=== PATIENT | female | born 1970 | race Caucasian/White ===

== ENCOUNTER → 2020-01-22 | Outpatient (CLI) | payer BC ==
[2020-01-22 14:59] LABS: ALT 12 U/L (4-34); AST 21 U/L (14-36); African American GFR (CKD) >90 (>60 ml/min/1.73 sqM); Albumin 4.2 g/dL (3.5-5.0); Alkaline Phosphatase 95 U/L (38-126); Anion Gap 8 mmol/L; Blood Urea Nitrogen 10 mg/dL (7-17); Calcium 9.5 mg/dL (8.4-10.2); Carbon Dioxide 25 mmol/L (22-30); Chloride 103 mmol/L (98-107); Glucose 89 mg/dL (74-99); Non-African American GFR(CKD) >90 (>60 ml/min/1.73 sqM); Potassium 4.6 mmol/L (3.5-5.1); Sodium 136 mmol/L (137-145); Total Bilirubin 0.7 mg/dL (0.2-1.3)
[2020-01-22 15:01] LABS: HCT 47.7 % (34.0-46.0); HGB 15.6 gm/dL (11.4-16.0); MCH 29.4 pg (25.0-35.0); MCHC 32.7 g/dL (31.0-37.0); MCV 89.9 fL (80.0-100.0); Mean Platelet Volume 7.2; Platelet Count 283 k/uL (150-450); RDW 13.5 % (11.5-15.5); WBC 7.1 k/uL (3.8-10.6)
[2020-01-22 15:22] LABS: Appearance,Urine Clear (Clear); Bilirubin,Urine Negative (Negative); Blood,Urine Negative (Negative); Color,Urine Yellow; Glucose,Urine (UA) Negative (Negative); Ketones,Urine Negative (Negative); Leukocyte Esterase,Urine Negative (Negative); Nitrite,Urine Negative (Negative); PH, Urine 5.5 (5.0-8.0); Protein,Urine Negative (Negative); Specific Gravity,Urine 1.013 (1.001-1.035); Urobilinogen,Urine <2.0 mg/dL (<2.0)
[2020-01-22 22:03] LABS: Partial Thromboplastin Time 26.5 sec (22.0-30.0)
== END | disposition home or self-care (01) ==
LOC: LABPAT 12:33
PROVIDERS: ATTEND Orthopaedic Surgery
DX: Z01.818 Encounter for other preprocedural examination (principal); Z01.812 Encounter for preprocedural laboratory examination
CPT/HCPCS: 80053; 81003; 85027; 85610; 85730; 87070

== ENCOUNTER 2020-02-02 13:18 | Observation (INO) | payer BC ==
[2020-01-29 11:36] VITALS: BMI 43.8
[~2020-02-02 13:18] MED LIST: ACETAMINOPHEN TAB 500 MG TAB PO ONE; DEXAMETHASONE SOD PHOSPHATE 10 MG/ML 1 ML VIAL IV ONE; GABAPENTIN 300 MG CAP PO ONE; HYDROcodone/APAP 5-325MG 1 EACH TAB PO PRN; HYDROmorphone 0.5 MG/0.5 ML SYRINGE IVP PRN; LIDOCAINE 1% (10MG/ML) FOR IV START INTRADERMA PRN; MAGNESIUM HYDROXIDE 2,400 MG/10 ML CUP PO PRN; MELOXICAM 7.5 MG TAB PO ONE; NA PHOS,M-B/NA PHOS,DI-BA 133 ML ENEMA RECTAL PRN; NALOXONE 0.4 MG/ML 1 ML VIAL IV PRN; ONDANSETRON 4 MG/2 ML VIAL IVP ONE; ONDANSETRON 4 MG/2 ML VIAL IVP PRN; ROPIVACAINE 246.25 MG, EPINEPHrine 0.5 MG, KETOROLAC 30 MG, cloNIDine HCL/PF 80 MCG, WA... MISCELLANE ONE; SCOPOLAMINE 1.5MG/72HR PATCH TRANSDERM ONE; TRANEXAMIC ACID 1,000 MG in SODIUM CHLORIDE 0.9% 100 ML IVPB ONE; bisacodyL 10 MG SUPP RECTAL PRN; ceFAZolin 3 GM in SODIUM CHLORIDE 0.9% 100 ML IVPB ONE; diazePAM 5 MG TAB PO PRN; hydrOXYzine pamoate 25 MG CAP PO PRN
[2020-02-02] MEDS: LACTATED RINGERS 1,000 ML IV SCH (14:04)
[2020-02-02] MEDS ORDERED: ONDANSETRON 4 MG/2 ML VIAL ONE (14:07)
[2020-02-02] MEDS ORDERED: ACETAMINOPHEN TAB 500 MG TAB ONE (14:07)
[2020-02-02] MEDS ORDERED: MIDAZOLAM 2 MG/2 ML VIAL IV ONE (14:17)
[2020-02-02] MEDS ORDERED: fentaNYL (PF) 50 MCG/ML 2 ML AMP IV ONE (14:17)
[2020-02-02] MEDS ORDERED: SCOPOLAMINE 1.5MG/72HR PATCH TRANSDERM ONE (14:40)
[2020-02-02] MEDS ORDERED: TRANEXAMIC ACID 1,000 MG/10 ML VIAL ONE (14:48)
[2020-02-02] MEDS ORDERED: KETAMINE 10 MG/ML 20 ML VIAL ONE (14:48)
[2020-02-02] MEDS ORDERED: PROPOFOL 10 MG/ML 20 ML VIAL IV ONE (14:48)
[2020-02-02] MEDS ORDERED: ROCURONIUM BROMIDE 10 MG/ML 5 ML VIAL IV ONE (14:48)
[2020-02-02] MEDS ORDERED: SUCCINYLCHOLINE CHLORIDE 100 MG/5 ML SYR IV ONE (14:48)
[2020-02-02] MEDS ORDERED: MIDAZOLAM 2 MG/2 ML VIAL ONE (14:48)
[2020-02-02] MEDS ORDERED: LIDOCAINE 1% INJ 10MG/ML (20 ML MDV) ONE (14:48)
[2020-02-02] MEDS ORDERED: SODIUM CHLORIDE 0.9% 100 ML BAG ONE (14:48)
[2020-02-02] MEDS ORDERED: fentaNYL (PF) 50 MCG/ML 2 ML AMP ONE (14:48)
[2020-02-02] MEDS ORDERED: ROPIVACAINE 0.2%-NS ON-Q PUMP 1,090 MG, EMPTY PAIN BALL 1 EACH MISCELLANE PRN (16:03)
--- NOTE | 2020-02-02 16:03 | P.ANPRN ---
Procedure Note - Anesthesia - Nerve Block Performed Right Adductor Canal Infusion Time Out Performed: Yes Date of Procedure: 02/02/20 Procedure Start Time: 14:16 Procedure Stop Time: 14:25 Location of Patient: PreOp Indication: Requested by Surgeon Specifically requested for management of pain by DrMandi: Abraham Monet Sedation Type: Sedate with meaningful contact maintained Preparation: Sterile Prep, Sterile Dressing Position: Supine Catheter: Indwelling Needle Types: Pajunk Needle Gauge: 18 Ultrasound used to visualize needle placement: Yes Ultrasound used to observe medication spread: Yes Injectate: 0.5% Ropivacaine (see comment for volume) (20 ml) Blood Aspirated: No Pain Paresthesia on Injection Noted: No Resistance on Injection: Normal Image Stored and Saved: Yes Events: Uneventful and Well Tolerated
--- NOTE | 2020-02-02 16:19 | P.OP ---
Date of Procedure: 02/02/20 Preoperative Diagnosis: Severe osteoarthritis right knee Postoperative Diagnosis: Severe osteoarthritis right knee Procedure(s) Performed: Right total knee arthroplasty utilizing Vision[employer] patient specific guides Implants: Flores and Nephew Cruciate Retaining Journey II CR Oxinium Femoral Component size 5, right Flores & Nephew Journey Nonporous Tibial Baseplate size 4, right Flores & Nephew Journey II Deep Dished, XLPE Articular Insert, 10 mm, size 3-4 Flores & Nephew Abbie II Resurfacing Patellar Component, Oval, 29 mm All components were cemented using Palacose R bone cement. The articulation is Oxinium on polyethylene. Visionaire patient specific guides The articulation is Oxinium on polyethylene. Anesthesia: spinal Surgeon: Abraham Monet Slash Trimmer #1: Iona Fonseca Estimated Blood Loss (ml): 25 Pathology: other (Bone and cartilage) Condition: stable Disposition: PACU Indications for Procedure: After failure of conservative treatment we discussed the surgical and nonsurgical treatment options at length. Patient wishes to proceed with a total knee arthroplasty. Complications specific to this procedure were discussed at length, including but not limited to infection, bleeding, stiffness, and nerve injury. Covid-19 was also discussed at length with the patient, and they are aware of the current policies and procedures. The patient was given the option of delaying surgery, but they elect to proceed knowing these risks. Patient is aware of all these complications and informed consent was obtained Operative Findings: The operative findings are consistent with severe osteoarthritis of the right knee Description of Procedure: Patient was seen in the preoperative area consent was reviewed and operative site was marked with a skin marker. An adductor canal pain catheter was placed by anesthesia in the preoperative area. Patient was then brought to the operating room and given preoperative antibiotics intravenously. A spinal anesthetic was administered by the anesthesia department. A tourniquet was placed on the upper thigh and the lower extremity was prepped and draped in usual sterile fashion. A gram of transexamic acid was given. A universal timeout was then performed which confirmed the patient's name, surgical site, ALLERGIES, and consent. The lower extremity was then exsanguinated and tourniquet was inflated to 250 mmHg. A standard and anterior midline approach to the knee was performed. The skin and subcutaneous tissue was dissected down to the patellar tendon. A medial parapatellar arthrotomy was then performed. The knee was then extended, the patellar was everted, and the knee was again flexed. Anterior horns of both menisci were excised, and a release was performed to the posterior medial aspect of the knee. On gross visual inspection, there was complete loss of articular cartilage in the medial and patellofemoral joint spaces. There was also significant cartilage damage in the lateral compartment. There were multiple periarticular osteophytes. The patient specific guide was placed on the distal femur, and pinned in place. Using the patient specific guide, the distal femoral cut was performed. The cutting block was then removed and the cut was checked for flatness. The appropriate 5-in-1 cutting block was then pinned in place through the holes that were drilled through the patient specific guide. The anterior condyles were cut without notching. The posterior and chamfer cuts were performed while protecting the collateral ligaments. The cutting block was then removed. Attention was then directed to the tibia. The remaining ACL was removed with a Ronguer, and the tibia was then gently subluxed forward with a large bent knee retractor. Any remaining menisci was excised. The posterior lateral corner was cauterized in order to cauterize the lateral geniculate artery. The patient specific guide for the tibia was then placed and was held in place with pins. Pinholes were then placed for rotation of the tibial component as well. Proximal tibia was then cut and sized. Next trials were then placed with the appropriate-sized insert. The knee was able to fully extend and flex to 130 and was stable throughout all range of motion. The knee was then extended, patella everted. Patella was then measured, and then using an osteotomy guide, the patella was cut at the appropriate level. The patella was then measured and drilled and the patella trial was then placed. The knee was then taken through range of motion with the patella trial and the patella tracked normally. The knee was then extended patella trial was then removed and the patella was everted. Knee was then flexed and lug holes were drilled through the femoral trial and the femoral trial was then removed. The tibial was then exposed, and the tibial broach guide was then pinned in place after it was set for the appropriate rotation to allow for the most coverage without overhang. The tibia was then reamed and broached. The cut surfaces of bone were then irrigated with pulsatile lavage. The posterior structures were injected with the ropivacaine solution. The knee was also irrigated with Irrisept solution. The components were then opened, the cement was mixed, and the components were then cemented in place. The cement was allowed to harden with the knee in full extension. While the cement was hardening, the remaining soft tissues were then injected with a ropivacaine solution, which consisted of 246.25 mg of ropivacaine, 0.5 mg of epinephrine, 30 mg of Toradol, 80 g of clonidine, and 48.45 mL of sterile water, for a total of 100 mL of fluid injected. After the cemented hardened. The tourniquet was released, and hemostasis was obtained. A second gram of transexamic acid was given. The knee was again irrigated. The knee was again taken through range of motion and found to be stable throughout all range of motion of 0-130, and the patella tracked normally. The fascia was then closed with #2 strata fix suture. The subcutaneous tissue was closed with 3-0 Vicryl and 3-0 strata fix. Dermabond glue was used for the skin and placed with the knee in flexion. The patient was placed in a sterile silver dressing. Patient was then transferred to recovery room in stable condition. The assistant professor of psychology LG Cole was required due the complexity surgery and the need for a skilled surgical services assistant. She assisted in positioning, draping, retraction, and closure of the wound.
[2020-02-02] MEDS ORDERED: LACTATED RINGERS 1,000 ML IV ONE (16:36)
[2020-02-02] MEDS: HYDROmorphone 0.5 MG/0.5 ML SYRINGE IVP PRN ×4 (17:02→17:32)
--- NOTE | 2020-02-02 17:46 | XR ---
EXAMINATION TYPE: XR knee limited RT DATE OF EXAM: 02/02/2020 COMPARISON: NONE HISTORY: Postop TECHNIQUE: 2 views FINDINGS: There is right knee prosthesis. Components are in anatomic position. IMPRESSION: No complicating process seen.
[2020-02-02] MEDS: SODIUM CHLORIDE 0.9% 1,000 ML IV SCH ×2 (18:44→22:40)
[2020-02-02] MEDS: APIXABAN 5 MG TAB PO SCH (21:02)
[2020-02-02] MEDS: SENNOSIDES-DOCUSATE SODIUM 1 EACH TAB PO SCH (21:02)
[2020-02-02] MEDS: ceFAZolin 3 GM in SODIUM CHLORIDE 0.9% 100 ML IVPB SCH (22:40)
[2020-02-03] MEDS: LACTATED RINGERS 1,000 ML IV SCH (00:01)
[2020-02-03] MEDS: HYDROmorphone 1 MG/ML 1 ML SYRINGE IVP PRN ×3 (05:27→22:24)
--- NOTE | 2020-02-03 07:39 | P.PN ---
Progress Note - Text Progress Note Date: 02/03/20 Postoperative day # 1 status post total knee arthroplasty, under spinal anesthesia, and adductor canal catheter placed for postoperative analgesia, currently at ropivacaine 0.2% 8 mL per hour and continuous infusion, patient using oral pain medication for breakthrough pain. Assessment and plan= Acute postoperative pain, adductor canal catheter for pain control, pain is well controlled we'll continue the same management. note= patient was seen at 06:45 AM
[2020-02-03] MEDS: SODIUM CHLORIDE 0.9% 1,000 ML IV SCH (07:45)
[2020-02-03] MEDS: APIXABAN 5 MG TAB PO SCH ×2 (07:48→19:51)
[2020-02-03] MEDS: ceFAZolin 3 GM in SODIUM CHLORIDE 0.9% 100 ML IVPB SCH (07:48)
[2020-02-03 07:53] LABS: Basophils % (A) 0 %; Eosinophils # (A) 0.1 k/uL (0-0.7); Eosinophils % (A) 1 %; HCT 34.3 % (34.0-46.0); Lymphocytes # (A) 1.1 k/uL (1.0-4.8); Lymphocytes % (A) 9 %; MCH 31.5 pg (25.0-35.0); MCHC 35.2 g/dL (31.0-37.0); MCV 89.7 fL (80.0-100.0); Mean Platelet Volume 7.2; Monocytes # (A) 1.4 k/uL (0-1.0); Monocytes % (A) 11 %; Neutrophils # (A) 10.2 k/uL (1.3-7.7); Neutrophils % (A) 79 %; Platelet Count 252 k/uL (150-450); RBC 3.82 m/uL (3.80-5.40); RDW 13.6 % (11.5-15.5); WBC 12.8 k/uL (3.8-10.6)
[2020-02-03 07:59] LABS: HGB 12.1 gm/dL (11.4-16.0)
[2020-02-03] MEDS ORDERED: HYDROcodone/APAP 7.5-325MG 1 EACH TAB PO PRN (08:55)
[2020-02-03] MEDS ORDERED: MELATONIN 5 MG TABLET PO PRN (10:18)
--- NOTE | 2020-02-03 11:28 | P.PN ---
Subjective Progress Note Date: 02/03/20 This is a 49-year-old female who is status post right total knee arthroplasty. This is postoperative day #1 and patient is seen and evaluated at bedside with Dr. Abraham Monet. Patient does complain of pain in the right knee today and states that she has had difficulty ambulating due to stiffness in the knee. Patient denies any fever/chills, numbness, weakness, tingling, abdominal pain, shortness of breath or chest pain. Objective - Vital Signs Vital signs: Vital Signs Temp 98.2 F 02/03/20 07:00 Pulse 73 02/03/20 07:56 Resp 18 02/03/20 07:00 BP 107/74 02/03/20 07:56 Pulse Ox 96 02/03/20 07:00 Intake & Output 02/02/20 02/03/20 02/03/20 18:59 06:59 18:59 Intake Total 1450 Output Total 25 Balance 1425 Weight 130.2 kg 130.2 kg Intake: IV 1450 Output: Estimated Blood Loss 25 Other: Voiding Method Bedside Commode Bedside Commode # Voids 1 1 - Exam Vital signs are stable. Patient is in no acute distress and is alert and oriented 3. Calf is soft and nontender to palpation. Dressing is clean, dry, and intact. Patient has full foot and ankle motion without pain or difficulty. Neurovascular status and circulatory status are intact. - Labs CBC & Chem 7: 02/03/20 06:42 Labs: Abnormal Lab Results - Last 24 Hours (Table) 02/03/20 Range/Units 06:42 WBC 12.8 H (3.8-10.6) k/uL Neutrophils # 10.2 H (1.3-7.7) k/uL Monocytes # 1.4 H (0-1.0) k/uL Assessment and Plan (1) Osteoarthritis of right knee Current Visit: Yes Status: Acute Code(s): M17.11 - UNILATERAL PRIMARY OSTEOARTHRITIS, RIGHT KNEE SNOMED Code(s): 169669930001640 (2) Status post total right knee replacement Current Visit: Yes Status: Acute Code(s): Z96.651 - PRESENCE OF RIGHT ARTIFICIAL KNEE JOINT SNOMED Code(s): 4522656691019 Plan: #1 Continue with routine postoperative care and pain control, leave dressing in place for ten days. #2 Anticoagulation with Eliquis. #3 Physical therapy and CPM today. #4 Appreciate input from medicine. #5 Anticipate discharge home with home care likely tomorrow.
--- NOTE | 2020-02-03 12:33 | P.CONS ---
History of Present Illness - Reason for Consult Leukocytosis - History of Present Illness Patient is status post right total knee arthroplasty postoperative day 1. Patient is still having lots of pain because of which patient is not being discharged today patient did pass gas did not move his her bowel yet. Patient denied any fever chills nausea vomiting abdominal pain dysuria. Patient doesn't have a Ferguson catheter this time. Patient uses Lasix as well as hydrochlorothiazide for hypertension patient blood pressure is low normal which is expected in the perioperative period. Patient uses Eliquis 5 mg twice a day for history of DVT which she was resumed on already. Review of Systems REVIEW OF SYSTEMS: CONSTITUTIONAL: No fever, no malaise, no fatigue. HEENT: No recent visual problems or hearing problems. Denied any sore throat. CARDIOVASCULAR: No chest pain, orthopnea, PND, no palpitations, no syncope. PULMONARY: No shortness of breath, no cough, no hemoptysis. GASTROINTESTINAL: No diarrhea, no nausea, no vomiting, no abdominal pain. NEUROLOGICAL: No headaches, no weakness, no numbness. HEMATOLOGICAL: Denies any bleeding or petechiae. GENITOURINARY: Denies any burning micturition, frequency, or urgency. MUSCULOSKELETAL/RHEUMATOLOGICAL: Pain in the right knee ENDOCRINE: Denies any polyuria or polydipsia. The rest of the 14-point review of systems is negative. Past Medical History Past Medical History: Osteoarthritis (OA) Additional Past Medical History / Comment(s): edema right leg, superficial blood clot upper thigh x2-most recently in September, thinks has no fluid in lap band History of Any Multi-Drug Resistant Organisms: None Reported Past Surgical History: Bariatric Surgery, Orthopedic Surgery Additional Past Surgical History / Comment(s): lap band 5 yrs. ago, arthroscopic knee surg. x2 left knee, cyst removed left wrist Past Anesthesia/Blood Transfusion Reactions: No Reported Reaction Past Psychological History: Anxiety, Depression Smoking Status: Never smoker Past Alcohol Use History: Occasional Past Drug Use History: Marijuana Additional Drug Use History / Comment(s): occasional use - Past Family History Mother Family Medical History: No Reported History Medications and Allergies Home Medications Medication Instructions Recorded Confirmed Type Apixaban [Eliquis] 5 mg PO BID 01/29/20 02/02/20 History Celecoxib [CeleBREX] 400 mg PO DAILY 01/29/20 02/02/20 History Cetirizine HCl [Zyrtec] 10 mg PO DAILY 01/29/20 02/02/20 History DULoxetine HCL [Cymbalta] 60 mg PO DAILY 01/29/20 02/02/20 History Fluticasone Nasal [place] [Flonase 2 spr EA NOSTRIL DAILY 01/29/20 02/02/20 History Nasal [place]] Furosemide [Lasix] 20 mg PO DAILY 01/29/20 02/02/20 History Hemp Gummy 1 tab PO HS 01/29/20 02/02/20 History Melatonin 10 mg PO HS PRN 01/29/20 02/02/20 History Zolpidem [Ambien] 10 mg PO HS PRN 01/29/20 02/02/20 History Allergies Allergy/AdvReac Type Severity Reaction Status Date / Time No Known Allergies Allergy Verified 02/02/20 14:03 Physical Exam Vitals: Vital Signs Temp Pulse Resp BP Pulse Ox 02/03/20 07:56 73 107/74 02/03/20 07:00 98.2 F 71 18 92/53 96 02/03/20 01:00 98.1 F 79 18 114/72 97 02/02/20 19:16 86 18 130/88 95 02/02/20 19:01 68 18 141/90 95 02/02/20 18:46 69 18 138/88 96 02/02/20 18:31 93 18 141/98 96 02/02/20 18:16 98.1 F 96 16 133/91 95 02/02/20 17:39 86 16 159/90 99 02/02/20 17:24 100 16 147/98 97 02/02/20 17:09 90 16 139/79 100 02/02/20 16:54 96.8 F L 103 H 16 147/98 97 02/02/20 14:40 97 16 141/72 97 02/02/20 13:40 98.3 F 78 16 146/81 98 Intake and Output 02/02/20 02/03/20 02/03/20 22:59 06:59 14:59 Intake Total 350 Output Total 25 Balance 325 Intake: IV 350 Output: Estimated Blood Loss 25 Other: Voiding Method Bedside Commode Bedside Commode Bedside Commode # Voids 1 1 1 Weight 130.2 kg PHYSICAL EXAMINATION: GENERAL: The patient is alert and oriented x3, not in any acute distress. Well developed, well nourished. HEENT: Pupils are round and equally reacting to light. EOMI. No scleral icterus. No conjunctival pallor. Normocephalic, atraumatic. No pharyngeal erythema. No thyromegaly. CARDIOVASCULAR: S1 and S2 present. No murmurs, rubs, or gallops. PULMONARY: Chest is clear to auscultation, no wheezing or crackles. ABDOMEN: Soft, nontender, nondistended, normoactive bowel sounds. No palpable organomegaly. MUSCULOSKELETAL: Deferred to orthopedic surgery EXTREMITIES: No cyanosis, clubbing, or pedal edema. NEUROLOGICAL: Gross neurological examination did not reveal any focal deficits. SKIN: No rashes. Results CBC & Chem 7: 02/03/20 06:42 Labs: Abnormal Lab Results - Last 24 Hours (Table) 02/03/20 Range/Units 06:42 WBC 12.8 H (3.8-10.6) k/uL Neutrophils # 10.2 H (1.3-7.7) k/uL Monocytes # 1.4 H (0-1.0) k/uL Assessment and Plan Plan: -Leukocytosis there is no evidence of infection no further testing is necessary in this is reactive secondary to surgery -Hypertension patient is bit hypotensive which is expected in the perioperative. Because of which I'll hold off on her chlorothiazide and Lasix. Patient will not benefit from both Lasix and hydrochlorothiazide because of which she can continue oral Lasix for blood pressure if needed but had a chlorothiazide will be discontinued. -History of DVT presently on Eliquis which will be continued -Right knee arthroplasty pain management as per primary service -Depression resumed on home medications.
[2020-02-03] MEDS: HYDROcodone/APAP 7.5-325MG 1 EACH TAB PO PRN ×2 (12:45→19:51)
[2020-02-03] MEDS: SENNOSIDES-DOCUSATE SODIUM 1 EACH TAB PO SCH (19:51)
[2020-02-04] MEDS: HYDROcodone/APAP 7.5-325MG 1 EACH TAB PO PRN ×2 (03:20→08:41)
[2020-02-04] MEDS: SODIUM CHLORIDE 0.9% 1,000 ML IV SCH (04:08)
[2020-02-04] MEDS: LACTATED RINGERS 1,000 ML IV SCH (04:08)
[2020-02-04 07:58] VITALS: BP 121/78; PULSE 73; RESP 16; TEMP 98.3
[2020-02-04] MEDS: APIXABAN 5 MG TAB PO SCH (08:34)
[2020-02-04] MEDS ORDERED: DULoxetine HCL 60 MG CAPSULE.DR PO SCH (09:00)
--- NOTE | 2020-02-04 09:20 | P.DS ---
Providers Date of admission: 02/03/20 05:47 Expected date of discharge: 02/04/20 Attending physician: Abraham Monet Consults: 02/02/20 10:59 Consult Physician Routine Consulting Provider: Obdulia العراقي Consult Reason/Comments: medical management Do you want consulting provider notified?: Yes Primary care physician: Stated None - Discharge Diagnosis(es) (1) Osteoarthritis of right knee Current Visit: Yes Status: Acute (2) Status post total right knee replacement Current Visit: Yes Status: Acute Hospital Course: This is a 49-year-old female with known history of degenerative arthritis of the right knee. The patient presents for evaluation. After discussion and consideration patient elects to proceed with total knee arthroplasty. The patient is seen preoperatively by Dr. Monet and medically cleared for surgery by their primary care physician. Patient is admitted to [facility] on 02/02/2020 for total knee arthroplasty. The procedures performed without complication or sequelae. The patient is doing well postoperatively. Labs and vital signs are stable on day of discharge. On day of discharge patient's knee incision is healing well. There is minimal erythema. There is no drainage noted at this time. There is minimal soft tissue swelling to the knee. Patient has full foot and ankle motion without difficulty or pain. Calf is soft and nontender to palpation. Neurovascular status to the right lower extremity is intact. Patient is discharged home in good condition. Opioid start talking form is reviewed and signed at patient bedside. Please see med rec for accurate list of home medications. Plan - Discharge Summary Discharge Rx Participant: Yes New Discharge Prescriptions: New Sennosides [Senokot] 2 tab PO DAILY PRN #60 tablet PRN Reason: Constipation HYDROcodone/APAP 7.5-325MG [[place] 7.5-325] 1 - 2 tab PO Q6H PRN #32 tab PRN Reason: Pain Discontinued hydroCHLOROthiazide [Hydrodiuril] 50 mg PO DAILY No Action Hemp Gummy 1 tab PO HS DULoxetine HCL [Cymbalta] 60 mg PO DAILY Zolpidem [Ambien] 10 mg PO HS PRN PRN Reason: Insomnia Fluticasone Nasal [place] [Flonase Nasal [place]] 2 spr EA NOSTRIL DAILY Cetirizine HCl [Zyrtec] 10 mg PO DAILY Furosemide [Lasix] 20 mg PO DAILY Celecoxib [CeleBREX] 400 mg PO DAILY Apixaban [Eliquis] 5 mg PO BID Melatonin 10 mg PO HS PRN PRN Reason: Insomnia Discharge Medication List Apixaban [Eliquis] 5 mg PO BID 01/29/20 [History] Celecoxib [CeleBREX] 400 mg PO DAILY 01/29/20 [History] Cetirizine HCl [Zyrtec] 10 mg PO DAILY 01/29/20 [History] DULoxetine HCL [Cymbalta] 60 mg PO DAILY 01/29/20 [History] Fluticasone Nasal [place] [Flonase Nasal [place]] 2 spr EA NOSTRIL DAILY 01/29/20 [History] Furosemide [Lasix] 20 mg PO DAILY 01/29/20 [History] Hemp Gummy 1 tab PO HS 01/29/20 [History] Melatonin 10 mg PO HS PRN 01/29/20 [History] Zolpidem [Ambien] 10 mg PO HS PRN 01/29/20 [History] HYDROcodone/APAP 7.5-325MG [[place] 7.5-325] 1 - 2 tab PO Q6H PRN #32 tab 02/04/20 [Rx] Sennosides [Senokot] 2 tab PO DAILY PRN #60 tablet 02/04/20 [Rx] Follow up Appointment(s)/Referral(s): [facility], [NON-STAFF] - Abraham Monet DO [Doctor of Osteopathic Medicine] - 02/16/20 10:30 am Ambulatory/Diagnostic Orders: Continuous Passive Motion (CPM) Machine [DME.AMB1] Time Frame: 3 Weeks, Location: None Selected Patient Instructions/Handouts: *Surgery [facility] - On-Q Pain Pump Discharge Instructions, Precautions after Total Joint Replacement Surgery (DC), Joint Replacement Surgery (DC) Activity/Diet/Wound Care/Special Instructions: *Please call [facility] once home to arrange delivery of Continuous Passive Motion (CPM) machine: [phone] Weightbearing as tolerated with a walker. Continue Eliquis for anticoagulation. CPM 5-6h daily. Leave dressing intact. May be removed by home care nurse or by patient in 10 days. May shower with dressing on. Recommend use of compression stockings daily until follow up to help prevent swelling and blood clots. May remove at night before sleeping. Please follow up with [facility] and call with any questions or concerns, . Discharge Disposition: HOME WITH HOME HEALTH SERVICES
--- NOTE | 2020-02-04 17:53 | PN ---
PROGRESS NOTE DATE OF SERVICE: 02/04/2020 This is a 49-year-old woman who was admitted after right total knee arthroplasty\ is improving at this time. No chest pain. No palpitations. No fever. PHYSICAL EXAMINATION: Alert and oriented x3. Pulse blood pressure 121/78, respirations 16, temperature 98.2, pulse ox 98% on room air skin: Normal expression bases no rhonchi no crackles abdomen soft legs status post surgery no cyst no focal slab 7 legs status post right knee surgery. Minimal swelling present in the cuff and thigh. LABS: WBC 12.2, hemoglobin 12.1, ASSESSMENT: 1. Status post right total knee arthroplasty. 2. Leukocytosis, reactive. 3. Hypertension. 4. DVT prophylaxis. 5. Depression. 6. Increased WBC possibly reactive. 7. FULL CODE. 8. Obesity with body mass index of 45. RECOMMENDATION: This 49-year-old woman who presented after surgery, is improving significantly. I recommend to resume the home medications and follow with primary physician in 1-2 weeks. Rest of the recommendations to be followed. Continue with the incentive spirometry. Further recommendations to follow. MMODL / IJN: [id number] /
== END 2020-02-04 12:42 | disposition home health service (06) ==
LOC: OR 13:18 → 4SSUR 16:51 → OR 02-03 05:47
PROVIDERS: ADMIT Orthopaedic Surgery; ATTEND Orthopaedic Surgery
DX: M17.11 Unilateral primary osteoarthritis, right knee (principal); G89.18 Other acute postprocedural pain; D72.829 Elevated white blood cell count, unspecified; I10 Essential (primary) hypertension; F41.9 Anxiety disorder, unspecified; I95.9 Hypotension, unspecified; F32.9 Major depressive disorder, single episode, unspecified; E66.01 Morbid (severe) obesity due to excess calories; Z68.42 Body mass index [BMI] 45.0-49.9, adult; G47.00 Insomnia, unspecified; Z86.718 Personal history of other venous thrombosis and embolism; Z79.01 Long term (current) use of anticoagulants; Z79.899 Other long term (current) drug therapy; Z98.84 Bariatric surgery status
CPT/HCPCS: 27447; 97116; 97161; 64448; 76942; 85025; 88300; 73560; G0378 ×2; C1713; C1776; J2250; J0171; J1100; J0690 ×2; J2405 ×2; J2001; J3010; J1885; J1170 ×3; J2795 ×2; J0330; J2704; J0735

== ENCOUNTER → 2020-02-09 | Outpatient (CLI) | payer BC ==
--- NOTE | 2020-02-09 15:48 | US ---
EXAMINATION TYPE: US venous doppler duplex LE RT DATE OF EXAM: 02/09/2020 3:39 PM COMPARISON: NONE CLINICAL HISTORY: M25.561 Pain in R knee, M17.11. Right knee pain. Edema. Hx right knee surgery x 1 week ago. On blood thinners. Hx DVT per patient. SIDE PERFORMED: Right TECHNIQUE: The lower extremity deep venous system is examined utilizing real time linear array sonog meenakshi with graded compression, doppler sonography and color-flow sonography. VESSELS IMAGED: External Iliac Vein (EIV) Common Femoral Vein Deep Femoral Vein Greater Saphenous Vein * Femoral Vein Popliteal Vein Small Saphenous Vein * Proximal Calf Veins (* superficial vessels) Right Leg: Negative for DVT IMPRESSION: 1. Right lower extremity ultrasound negative for deep venous thrombosis.
== END | disposition home or self-care (01) ==
LOC: RADUSWWP 15:21
PROVIDERS: ATTEND Orthopaedic Surgery
DX: M17.11 Unilateral primary osteoarthritis, right knee (principal)

== ENCOUNTER → 2020-04-16 | Outpatient (CLI) | payer BC ==
[2020-04-16 15:32] LABS: HCT 46.6 % (34.0-46.0); HGB 14.9 gm/dL (11.4-16.0); MCH 27.6 pg (25.0-35.0); MCHC 31.9 g/dL (31.0-37.0); MCV 86.6 fL (80.0-100.0); Mean Platelet Volume 6.9; Platelet Count 359 k/uL (150-450); RBC 5.38 m/uL (3.80-5.40); WBC 8.4 k/uL (3.8-10.6)
[2020-04-16 15:41] LABS: ALT 11 U/L (4-34); AST 18 U/L (14-36); African American GFR (CKD) >90 (>60 ml/min/1.73 sqM); Albumin 4.5 g/dL (3.5-5.0); Alkaline Phosphatase 103 U/L (38-126); Anion Gap 10 mmol/L; Blood Urea Nitrogen 12 mg/dL (7-17); Calcium 9.7 mg/dL (8.4-10.2); Carbon Dioxide 26 mmol/L (22-30); Chloride 99 mmol/L (98-107); Glucose 99 mg/dL (74-99); Non-African American GFR(CKD) >90 (>60 ml/min/1.73 sqM); Potassium 4.6 mmol/L (3.5-5.1); Sodium 135 mmol/L (137-145); Total Bilirubin 0.6 mg/dL (0.2-1.3); Total Protein 7.5 g/dL (6.3-8.2)
[2020-04-16 15:46] LABS: Partial Thromboplastin Time 25.4 sec (22.0-30.0)
[2020-04-16 15:50] LABS: Appearance,Urine Cloudy (Clear); Bacteria,Urine Rare /hpf; Bilirubin,Urine Negative (Negative); Blood,Urine Negative (Negative); Calcium Oxalate Crystals,Urine Rare /hpf; Color,Urine Yellow; Glucose,Urine (UA) Negative (Negative); Hyaline Casts,Urine 1 /lpf (0-2); Ketones,Urine Negative (Negative); Leukocyte Esterase,Urine Negative (Negative); Mucus,Urine Rare /hpf; Nitrite,Urine Negative (Negative); PH, Urine 5.5 (5.0-8.0); Protein,Urine Negative (Negative); RBC,Urine 1 /hpf (0-5); Specific Gravity,Urine 1.019 (1.001-1.035); Squamous Epithelial Cell,Urine 15 /hpf (0-4); Urobilinogen,Urine <2.0 mg/dL (<2.0); WBC,Urine 3 /hpf (0-5)
== END | disposition home or self-care (01) ==
LOC: LABPAT 13:42
PROVIDERS: ATTEND Orthopaedic Surgery
DX: Z01.818 Encounter for other preprocedural examination (principal); M17.12 Unilateral primary osteoarthritis, left knee; Z01.812 Encounter for preprocedural laboratory examination
CPT/HCPCS: 80053; 81001; 85027; 85610; 85730; 87070

== ENCOUNTER 2020-04-27 09:22 | Day surgery (SDC) | payer BC ==
[2020-04-22 10:04] VITALS: BMI 44.9
[~2020-04-27 09:22] MED LIST changes: -DEXAMETHASONE SOD PHOSPHATE 10 MG/ML 1 ML VIAL IV ONE; -HYDROcodone/APAP 5-325MG 1 EACH TAB PO PRN; -HYDROmorphone 0.5 MG/0.5 ML SYRINGE IVP PRN; -MAGNESIUM HYDROXIDE 2,400 MG/10 ML CUP PO PRN; +MIDAZOLAM 2 MG/2 ML VIAL IV PRN; -NA PHOS,M-B/NA PHOS,DI-BA 133 ML ENEMA RECTAL PRN; -NALOXONE 0.4 MG/ML 1 ML VIAL IV PRN; -ONDANSETRON 4 MG/2 ML VIAL IVP ONE; -ONDANSETRON 4 MG/2 ML VIAL IVP PRN; -SCOPOLAMINE 1.5MG/72HR PATCH TRANSDERM ONE; -bisacodyL 10 MG SUPP RECTAL PRN; -diazePAM 5 MG TAB PO PRN; +fentaNYL (PF) 50 MCG/ML 2 ML AMP IV PRN; -hydrOXYzine pamoate 25 MG CAP PO PRN
[2020-04-27] MEDS ORDERED: ONDANSETRON 4 MG/2 ML VIAL ONE (09:50)
[2020-04-27] MEDS: LACTATED RINGERS 1,000 ML IV SCH (09:53)
[2020-04-27] MEDS ORDERED: ONDANSETRON 4 MG/2 ML VIAL IVP ONE (10:11)
[2020-04-27] MEDS ORDERED: DEXAMETHASONE SOD PHOSPHATE 10 MG/ML 1 ML VIAL IV ONE (10:12)
--- NOTE | 2020-04-27 10:39 | P.ANPRN ---
Procedure Note - Anesthesia - Nerve Block Performed Left Adductor Canal Infusion Time Out Performed: Yes (1018) Date of Procedure: 04/27/20 Procedure Start Time: Procedure Stop Time: Location of Patient: PreOp Indication: Acute Post-Operative Pain, Requested by Surgeon Specifically requested for management of pain by DrMandi: Abraham Monet Sedation Type: Sedate with meaningful contact maintained Preparation: Sterile Prep Position: Supine Catheter Depth at Skin (cm): 10 Catheter: Indwelling Needle Types: Pajunk Needle Gauge: 21 Ultrasound used to visualize needle placement: Yes Ultrasound used to observe medication spread: Yes Injectate: 0.5% Ropivacaine (see comment for volume) Blood Aspirated: No Pain Paresthesia on Injection Noted: No Resistance on Injection: Normal Image Stored and Saved: Yes Events: Uneventful and Well Tolerated
[2020-04-27] MEDS ORDERED: PROPOFOL 10 MG/ML 20 ML VIAL IV ONE (10:59)
[2020-04-27] MEDS ORDERED: MIDAZOLAM 2 MG/2 ML VIAL ONE (10:59)
[2020-04-27] MEDS ORDERED: NEOSTIGMINE 1 MG/ML 10 ML VIAL ONE (10:59)
[2020-04-27] MEDS ORDERED: HYDROmorphone (PF) 1 MG/ML ONE (10:59)
[2020-04-27] MEDS ORDERED: LIDOCAINE 1% INJ 10MG/ML (20 ML MDV) ONE (10:59)
[2020-04-27] MEDS ORDERED: TRANEXAMIC ACID 1,000 MG/10 ML VIAL ONE (10:59)
[2020-04-27] MEDS ORDERED: GLYCOPYRROLATE 0.2 MG/ML 2 ML VIAL ONE (10:59)
[2020-04-27] MEDS ORDERED: SODIUM CHLORIDE 0.9% 100 ML BAG ONE (10:59)
[2020-04-27] MEDS ORDERED: fentaNYL (PF) 50 MCG/ML 2 ML AMP ONE (10:59)
[2020-04-27] MEDS ORDERED: SUCCINYLCHOLINE CHLORIDE 100 MG/5 ML SYR IV ONE (10:59)
[2020-04-27] MEDS ORDERED: ROCURONIUM 10 MG/ML (10 ML VIAL) IV ONE (10:59)
[2020-04-27] MEDS ORDERED: HYDROmorphone 0.5 MG/0.5 ML SYRINGE IVP PRN ×2 (11:28)
[2020-04-27] MEDS ORDERED: NA PHOS,M-B/NA PHOS,DI-BA 133 ML ENEMA RECTAL PRN (11:28)
[2020-04-27] MEDS ORDERED: bisacodyL 10 MG SUPP RECTAL PRN (11:28)
[2020-04-27] MEDS ORDERED: HYDROmorphone 1 MG/ML 1 ML SYRINGE IVP PRN (11:28)
[2020-04-27] MEDS ORDERED: hydrOXYzine pamoate 25 MG CAP PO PRN (11:28)
[2020-04-27] MEDS ORDERED: MAGNESIUM HYDROXIDE 2,400 MG/10 ML CUP PO PRN (11:28)
[2020-04-27] MEDS ORDERED: diazePAM 5 MG TAB PO PRN (11:28)
[2020-04-27] MEDS ORDERED: NALOXONE 0.4 MG/ML 1 ML VIAL IV PRN (11:28)
[2020-04-27] MEDS ORDERED: HYDROcodone/APAP 5-325MG 1 EACH TAB PO PRN (11:28)
[2020-04-27] MEDS ORDERED: LACTATED RINGERS 1,000 ML IV ONE (12:15)
--- NOTE | 2020-04-27 12:47 | P.OP ---
Date of Procedure: 04/27/20 Preoperative Diagnosis: severe osteoarthritis left knee Postoperative Diagnosis: severe osteoarthritis left knee Procedure(s) Performed: left total knee arthroplasty Implants: Flores and Nephew Journey II CR Oxinium cruciate retaining femoral component size 5, left Flores [employer] Nephew Journey left nonporous tibial baseplate size 3 Flores [employer] Nephew Journey II, XLPE Deep Dished articular insert, size 13 mm, Size 3-4 left [employer] Journey BCS resurfacing oval patellar component, 29 mm All components were cemented using Palacos R bone cement.. The articulation is Oxinium on polyethylene. Anesthesia: GETA Surgeon: Abraham Monet Technical Business Systems Analyst #1: Iona Fonseca Estimated Blood Loss (ml): 30 Pathology: other (bone and cartilage) Condition: stable Disposition: PACU Indications for Procedure: After failure of conservative treatment we discussed the surgical and nonsurgical treatment options at length. Patient wishes to proceed with a total knee arthroplasty. Complications specific to this procedure were discussed at length, including but not limited to infection, bleeding, stiffness, and nerve injury. Covid-19 was also discussed at length with the patient, and they are aware of the current policies and procedures. The patient was given the option of delaying surgery, but they elect to proceed knowing these risks. Patient is aware of all these complications and informed consent was obtained Operative Findings: the operative findings are consistent with severe osteoarthritis of the left knee Description of Procedure: Patient was seen in the preoperative area consent was reviewed and operative site was marked with a skin marker. An adductor canal pain catheter was placed by anesthesia in the preoperative area. Patient was then brought to the operating room and given preoperative antibiotics intravenously. A general anesthetic was administered by the anesthesia department. A tourniquet was placed on the upper thigh and the lower extremity was prepped and draped in usual sterile fashion. A gram of transexamic acid was given. A universal timeout was then performed which confirmed the patient's name, surgical site, ALLERGIES, and consent. The lower extremity was then exsanguinated and tourniquet was inflated to 250 mmHg. A standard and anterior midline approach to the knee was performed. The skin and subcutaneous tissue was dissected down to the patellar tendon. A medial parapatellar arthrotomy was then performed. The knee was then extended, the patellar was everted, and the knee was again flexed. The patellar fat pad was removed in order to enhance exposure. Anterior horns of both menisci were excised, and a release was performed to the posterior medial aspect of the knee. On gross visual inspection, there was complete loss of articular cartilage in the medial and patellofemoral joint spaces. There was also significant cartilage damage in the lateral compartment. There were multiple periarticular osteophytes which were then removed with a Ronguer. The femoral canal was then opened with the 9.5 mm intramedullary drill. The 8 mm intramedullary james was then inserted into the femoral canal. The distal femoral cutting guide was then placed and set for 5 of valgus. The distal femoral cutting block was then pinned in place. The intramedullary james was then removed, and the distal femur was then cut. The cutting block was then removed and the cut was checked for symmetry. Next, the sizing guide was then placed and set for 3 external rotation based off of the epicondylar axis and Whitesides line. Pins were then placed and the drill holes, and the femur was sized with the sizing stylus. The pins were then removed, and the sizing guide was then removed. The spikes of the femoral block was then placed into the predrilled holes, and malleted into place. Two 45 mm pins were then placed into the fixation holes on the cutting block. An bill wing was then used to ensure there would be no notching with the anterior cut. The anterior condyles were cut without notching. The anterior cord cut was then performed, followed by the posterior cut, posterior chamfer cut, and the anterior chamfer cut. The collateral ligaments were protected during the entire process. The cutting block was then removed, and the femoral canal was plugged with autologous bone. Attention was then directed to the tibia. The remaining ACL was removed with a Ronguer, and the tibia was then gently subluxed forward with a large bent knee retractor. Any remaining menisci was excised. The posterior lateral corner was cauterized in order to cauterize the lateral geniculate artery. The extra medullary tibial cutting guide was then placed, set for the appropriate rotation, slope, and depth of resection. The proximal tibia cutting guide was then pinned in place. Proximal tibia was then cut and sized. Next trials were then placed with the appropriate-sized insert. The knee was able to fully extend and flex to 130 and was stable throughout all range of motion. The knee was then extended, patella everted. Patella was then measured, and then using an osteotomy guide, the patella was cut at the appropriate level. The patella was then measured and drilled and the patella trial was then placed. The knee was then taken through range of motion with the patella trial and the patella tracked normally. The knee was then extended patella trial was then removed and the patella was everted. Knee was then flexed and lug holes were drilled through the femoral trial and the femoral trial was then removed. The tibial was then exposed, and the tibial broach guide was then pinned in place after it was set for the appropriate rotation to allow for the most coverage without overhang. The tibia was then reamed and broached. The cut surfaces of bone were then irrigated with pulsatile lavage. The posterior structures were injected with the ropivacaine solution. The knee was also irrigated with Irrisept solution. The components were then opened, the cement was mixed, and the components were then cemented in place. The cement was allowed to harden with the knee in full extension. While the cement was hardening, the remaining soft tissues were then injected with a ropivacaine solution, which consisted of 246.25 mg of ropivacaine, 0.5 mg of epinephrine, 30 mg of Toradol, 80 g of clonidine, and 48.45 mL of sterile water, for a total of 100 mL of fluid injected. After the cemented hardened. The tourniquet was released, and hemostasis was obtained. A second gram of transexamic acid was given. The knee was again irrigated. The knee was again taken through range of motion and found to be stable throughout all range of motion of 0-130, and the patella tracked normally. The fascia was then closed with #2 strata fix suture. The subcutaneous tissue was closed with 3-0 Vicryl and 3-0 strata fix. Dermabond glue was used for the skin and placed with the knee in flexion. The p atient was placed in a sterile silver dressing. Patient was then transferred to recovery room in stable condition. The payroll and benefits assistant LG Cole was required due the complexity surgery and the need for a skilled surgical services tech. She assisted in positioning, draping, retraction, and closure of the wound.
[2020-04-27] MEDS ORDERED: ROPIVACAINE 0.2%-NS ON-Q PUMP 1,090 MG, EMPTY PAIN BALL 1 EACH MISCELLANE PRN (13:01)
[2020-04-27] MEDS: HYDROmorphone 0.5 MG/0.5 ML SYRINGE IVP PRN ×4 (13:25→14:30)
[2020-04-27 13:26] LABS: Glucose,Whole Blood 127 mg/dL (75-99)
--- NOTE | 2020-04-27 13:29 | XR ---
EXAMINATION TYPE: XR knee limited LT DATE OF EXAM: 04/27/2020 COMPARISON: None HISTORY: Knee replacement TECHNIQUE: Two-view left knee FINDINGS: Tibial and femoral components of in place. Postsurgical soft tissue changes are present. No acute fractures are evident. IMPRESSION: 1. No acute fractures post knee replacement
[2020-04-27] MEDS: SODIUM CHLORIDE 0.9% 1,000 ML IV SCH (15:16)
[2020-04-27] MEDS ORDERED: ZOLPIDEM 10 MG TAB PO PRN (16:45)
[2020-04-27] MEDS ORDERED: FLUTICASONE 50MCG/SPRAY NASAL 16GM EA NOSTRIL PRN (16:45)
[2020-04-27] MEDS ORDERED: MELATONIN 5 MG TABLET PO PRN (16:45)
[2020-04-27 16:48] LABS: Glucose,Whole Blood 116 mg/dL (75-99)
[2020-04-27] MEDS: HYDROcodone/APAP 5-325MG 1 EACH TAB PO PRN (18:07)
[2020-04-27] MEDS ORDERED: SENNOSIDES-DOCUSATE SODIUM 1 EACH TAB PO SCH (21:00)
[2020-04-28] MEDS: HYDROcodone/APAP 5-325MG 1 EACH TAB PO PRN (00:08)
[2020-04-28] MEDS: SODIUM CHLORIDE 0.9% 1,000 ML IV SCH (01:30)
--- NOTE | 2020-04-28 02:44 | CONS ---
CONSULTATION DATE OF SERVICE: 04/27/2020 REASON FOR CONSULTATION: Advice regarding bariatric surgery and multiple other medical issues requested by Dr. Monet. HISTORY OF PRESENT ILLNESS: This 49-year-old woman with a past medical history of DJD, history of bariatric surgery, history of motion sickness and anxiety, depression being followed by Dr. Wood in the outpatient setting underwent left total knee arthroplasty for severe degenerative joint disease. The patient tolerated the procedure well. Patient is slightly drowsy after surgery. There is no history of fever or rigors. No history of headache, loss of consciousness, chest pain, palpitation, shortness or breath, hematochezia or melena at this time. PAST MEDICAL HISTORY: History of DJD, history of bariatric surgery, history of joint replacement, history of anxiety, depression. MEDICATIONS: Medications prior to admission include: Fluticasone 2 sprays daily p.r.n., Lasix 20 mg daily, Motrin, Ambien, melatonin, hemp gummy, Cymbalta, Zyrtec, Eliquis. Doses are reviewed. ALLERGIES: None. FAMILY HISTORY: No history of heart disease or strokes in the family. SOCIAL HISTORY: History of THC. REVIEW OF SYSTEMS: ENT: No diminished hearing and no diminished vision. CARDIOVASCULAR SYSTEM: No angina, palpitations. RESPIRATORY SYSTEM: No cough or hemoptysis. GI: No nausea. : No dysuria. NERVOUS SYSTEM: No numbness or weakness. ALLERGY/IMMUNOLOGY: No asthma or hayfever. MUSCULOSKELETAL: As mentioned earlier. HEMATOLOGY: No history of anemia. ENDOCRINE: No history of diabetes or hypothyroidism. CONSTITUTIONAL: As mentioned earlier. DERMATOLOGY: Negative. RHEUMATOLOGY: Negative. PSYCHIATRY: As mentioned earlier. PHYSICAL EXAMINATION: The patient is alert and oriented x3. Pulse 93, blood pressure 143/76, respirations 16, temperature 97.8, pulse ox 93% on room air. HEENT: Conjunctivae normal. Oral mucosa moist. NECK: No jugular venous distention. No carotid bruit. No lymph node enlargement. CARDIOVASCULAR: S1, S2 muffled. RESPIRATORY: Breath sounds diminished at the bases. No rhonchi. No crackles. ABDOMEN: Soft, nontender. No mass palpable. LEGS: Status post left total knee arthroplasty. NERVOUS SYSTEM: Higher functions as mentioned earlier. Moves all 4 limbs. No focal motor or sensory deficits. LYMPHATICS: No lymphadenopathy of the neck, axillae or groin. SKIN: No ulcer, rash or bleeding. JOINTS: No active deforming arthropathy. LABS: Accu-Cheks 126, 116. The preoperative labs are CBC noted, otherwise coags are normal. Chemistry shows sodium 135. UA was cloudy with only 3 WBCs. ASSESSMENT: 1. Status post left total knee arthroplasty. 2. Hyponatremia on the preoperative labs. 3. Degenerative joint disease. 4. History of superficial blood clot upper thigh. 5. History of bariatric surgery. 6. History of degenerative joint disease. 7. History of lap band 5 years ago. 8. Motion sickness. 9. History of anxiety, depression. 10.History of THC. 11.Obesity with body mass index 45.8. 12.FULL CODE. RECOMMENDATIONS AND DISCUSSION: This 49-year-old woman who presented with multiple complex medical issues, at this time I recommend to continue the current medication, continue symptomatic treatment. Otherwise, I would recommend resume the home medications, DVT prophylaxis. Apixaban 5 mg p.o. b.i.d. has been given. Otherwise, we will continue to monitor. Recommended the patient to be followed up with primary physician in outpatient setting. Thank you Dr. Monet for letting us participate in the care of this patient. MMODL / IJN: [id number] /
[2020-04-28] MEDS: LACTATED RINGERS 1,000 ML IV SCH (04:31)
[2020-04-28 06:34] LABS: Basophils % (A) 0 %; Eosinophils % (A) 0 %; HCT 37.9 % (34.0-46.0); HGB 12.8 gm/dL (11.4-16.0); Lymphocytes # (A) 1.2 k/uL (1.0-4.8); Lymphocytes % (A) 12 %; MCHC 33.7 g/dL (31.0-37.0); MCV 88.9 fL (80.0-100.0); Mean Platelet Volume 7.1; Monocytes # (A) 0.9 k/uL (0-1.0); Monocytes % (A) 9 %; Neutrophils # (A) 7.7 k/uL (1.3-7.7); Neutrophils % (A) 78 %; Platelet Count 252 k/uL (150-450); RBC 4.27 m/uL (3.80-5.40); WBC 9.9 k/uL (3.8-10.6)
[2020-04-28] MEDS ORDERED: FUROSEMIDE 20 MG TAB PO SCH (09:00)
[2020-04-28] MEDS ORDERED: APIXABAN 5 MG TAB PO SCH (09:00)
[2020-04-28] MEDS ORDERED: LORATADINE 10 MG TAB PO SCH (09:00)
[2020-04-28] MEDS ORDERED: DULoxetine HCL 60 MG CAPSULE.DR PO SCH (09:00)
[2020-04-28 09:54] LABS: African American GFR (CKD) 119.6 (60.0-200.0); Anion Gap 11.2 mmol/L (4.00-12.00); BUN/Creat Ratio 15.71 Ratio (12.00-20.00); Calcium 9.1 mg/dL (8.7-10.3); Carbon Dioxide 23.8 mmol/L (21.6-31.8); Non-African American GFR(CKD) 103.2 (60.0-200.0); Potassium 4.1 mmol/L (3.5-5.5)
[2020-04-28] MEDS ORDERED: HYDROcodone/APAP 7.5-325MG 1 EACH TAB PO PRN ×2 (10:59)
--- NOTE | 2020-04-28 11:04 | P.DS ---
Providers Expected date of discharge: 04/28/20 Attending physician: Abraham Monet Consults: 04/27/20 11:28 Consult Physician Routine Consulting Provider: Obdulia العراقي Consult Reason/Comments: medical management Do you want consulting provider notified?: Yes Primary care physician: Luis Wood - Discharge Diagnosis(es) (1) Osteoarthritis of left knee Current Visit: Yes Status: Acute (2) S/P total knee arthroplasty Current Visit: Yes Status: Acute Assessment: This is a 49-year-old female with known history of degenerative arthritis of the left knee. The patient presents for evaluation. After discussion and consideration patient elects to proceed with total knee arthroplasty. The patient is seen preoperatively by Dr. Monet and cleared for surgery. Patient is admitted to [facility] on 04/27/2020 for total knee arthroplasty. The procedures performed without complication or sequelae. The patient is doing well postoperatively. Labs and vital signs are stable on day of discharge. On day of discharge patient's knee incision is healing well. There is minimal erythema. There is no drainage noted at this time. There is minimal soft tissue swelling to the hip and thigh. Patient has full foot and ankle motion without difficulty or pain. Neurovascular status to the left lower extremity is intact. Opioid start talking form is discussed and signed. Patient is discharged home in good condition. Please see med rec for accurate list of home medications. Plan - Discharge Summary Discharge Rx Participant: Yes New Discharge Prescriptions: New Sennosides [Senokot] 2 tab PO DAILY PRN #60 tablet PRN Reason: Constipation HYDROcodone/APAP 7.5-325MG [Geismar 7.5-325] 1 - 2 tab PO Q6H PRN #32 tab PRN Reason: Pain No Action Hemp Gummy 1 tab PO HS PRN PRN Reason: Insomnia DULoxetine HCL [Cymbalta] 60 mg PO DAILY Zolpidem [Ambien] 10 mg PO HS PRN PRN Reason: Insomnia Fluticasone Nasal Norton [Flonase Nasal Norton] 2 spr EA NOSTRIL DAILY PRN PRN Reason: allergies Cetirizine HCl [Zyrtec] 10 mg PO DAILY Furosemide [Lasix] 20 mg PO DAILY Apixaban [Eliquis] 5 mg PO BID Melatonin 10 mg PO HS PRN PRN Reason: Insomnia Ibuprofen [Motrin] 800 mg PO Q8H PRN PRN Reason: Pain Discharge Medication List Apixaban [Eliquis] 5 mg PO BID 01/29/20 [History] Cetirizine HCl [Zyrtec] 10 mg PO DAILY 01/29/20 [History] DULoxetine HCL [Cymbalta] 60 mg PO DAILY 01/29/20 [History] Fluticasone Nasal Norton [Flonase Nasal Norton] 2 spr EA NOSTRIL DAILY PRN 01/29/20 [History] Furosemide [Lasix] 20 mg PO DAILY 01/29/20 [History] Hemp Gummy 1 tab PO HS PRN 01/29/20 [History] Melatonin 10 mg PO HS PRN 01/29/20 [History] Zolpidem [Ambien] 10 mg PO HS PRN 01/29/20 [History] Ibuprofen [Motrin] 800 mg PO Q8H PRN 04/22/20 [History] HYDROcodone/APAP 7.5-325MG [Geismar 7.5-325] 1 - 2 tab PO Q6H PRN #32 tab 04/28/20 [Rx] Sennosides [Senokot] 2 tab PO DAILY PRN #60 tablet 04/28/20 [Rx] Follow up Appointment(s)/Referral(s): Luis Wood MD [Primary Care Provider] - 05/05/20 10:00 am [facility], [NON-STAFF] - As Needed Abraham Monet DO [Doctor of Osteopathic Medicine] - 05/12/20 2:05 pm Ambulatory/Diagnostic Orders: Continuous Passive Motion (CPM) Machine [DME.AMB1] Time Frame: 3 Weeks, Location: None Selected Activity/Diet/Wound Care/Special Instructions: Weightbearing as tolerated with walker. Leave dressing intact. Dressing may be removed by home care nurse or by patient 10 days postoperatively. CPM 5-6 hours daily as tolerated. May shower with dressing on. Please resume Eliquis. Please wear compression stockings during the day until follow-up appointment to help prevent blood clots. May remove at night. Follow-up with [facility] in 2 weeks, please call with any questions or concerns [phone] Discharge Disposition: HOME WITH HOME HEALTH SERVICES
--- NOTE | 2020-04-28 11:18 | P.PN ---
Progress Note - Text 04/28/20 709am 49-year-old female status post total knee replacement. Patient was seen and evaluated this morning for postop pain control, patient has an On-Q pump with solution running at 8 mL an hour with a VAS of 2. Doing very well,plan to continue On-Q pump infusion
[2020-04-28 12:26] VITALS: BP 133/84; PULSE 83; RESP 18; TEMP 98
--- NOTE | 2020-04-28 22:11 | PN ---
PROGRESS NOTE DATE OF SERVICE: 04/28/2020 This 49-year-old woman who was admitted after left total knee arthroplasty is improving significantly. No chest pain. No palpitations. No fever. PHYSICAL EXAMINATION: Alert and oriented x3. Pulse is 83, blood pressure 133/84, respiration 18, temperature 98 degrees, pulse ox 100% on room air. HEENT: Conjunctivae normal. NECK: No jugular venous distention. CARDIOVASCULAR SYSTEM: S1, S2 muffled. RESPIRATORY SYSTEM: Breath sounds diminished at the bases. No rhonchi. No crackles. ABDOMEN: Soft. LEGS: Status post surgery. NERVOUS SYSTEM: No focal deficit. LABS: CBC, BMP within normal limits. Hyponatremia improved. ASSESSMENT: 1. Status post left total knee arthroplasty. 2. Hyponatremia in the preoperative labs, improved. 3. History of degenerative joint disease. 4. History of superficial blood clot in the upper thigh. 5. History of bariatric surgery. 6. History of lap band 5 years ago. 7. Motion sickness history. 8. History of anxiety, depression. 9. History of tetrahydrocannabinol. 10.Obesity with body mass index of 45.8. 11.FULL CODE. RECOMMENDATIONS AND DISCUSSION: I recommend to continue current medications, continue with the monitoring, symptomatic treatment. Resume the home medications. DVT prophylaxis. Closely follow with primary physician in the outpatient setting. Further recommendations to follow. MMODL / IJN: [id number] /
== END 2020-04-28 14:51 | disposition home health service (06) ==
LOC: OR 09:22 → 4SSUR 13:00 → OR 04-28 14:51
PROVIDERS: ATTEND Orthopaedic Surgery
DX: M17.12 Unilateral primary osteoarthritis, left knee (principal); F41.9 Anxiety disorder, unspecified; F32.9 Major depressive disorder, single episode, unspecified; E66.9 Obesity, unspecified; K21.9 Gastro-esophageal reflux disease without esophagitis; Z79.01 Long term (current) use of anticoagulants; Z79.899 Other long term (current) drug therapy; Z86.718 Personal history of other venous thrombosis and embolism; Z98.84 Bariatric surgery status; Z68.42 Body mass index [BMI] 45.0-49.9, adult; Z97.3 Presence of spectacles and contact lenses; Z83.3 Family history of diabetes mellitus
CPT/HCPCS: 97161; 64448; 76942; 80048; 85025; 88300; 73560; 27447; C1713; C1776; J0171; J1100; J0690 ×2; J2405; J1885; J2795 ×2; J0735; J1170

== ENCOUNTER → 2023-11-21 | Outpatient (CLI) | payer OTHER ==
--- NOTE | 2023-11-21 12:10 | XR ---
EXAMINATION TYPE: XR pelvis AP view DATE OF EXAM: 11/21/2023 11:37 AM CLINICAL INDICATION:Female, 53 years old with history of S30.0XXA CONTUSION OF LOWER BACK AND PELVIS, initial; PH[facility]. Fell at work today. Right sided pain. Initial encounter. COMPARISON: None TECHNIQUE: The pelvis was examined in a single projection. FINDINGS: There is no evidence of fracture or dislocation. The iliopectineal lines are intact. The obturator rings are intact. Symphysis pubis is unremarkable. The right hip joint difficult to evalua te. There is no soft tissue abnormality. No abnormal calcifications are present. The spine appears inta ct. The hips appear intact. No significant degeneration. IMPRESSION: No definite acute osseous pathology. Recommend 3 view follow-up right hip radiographs if clinically the patient needs further imaging to e valuate for right hip fracture.
--- NOTE | 2023-11-21 12:17 | XR ---
EXAMINATION TYPE: XR lumbar spine 2 or 3V DATE OF EXAM: 11/21/2023 11:37 AM CLINICAL INDICATION:Female, 53 years old with history of S30.0XXA CONTUSION OF LOWER BACK AND PELVIS, initial; PHH. Initial encounter. COMPARISON: None TECHNIQUE: XR lumbar spine 2 or 3V - Frontal, lateral and coned in L5-S1 lateral views of the spine. FINDINGS: Tubing and connectors project over the abdomen. No evidence of any acute osseous pathology. No evidence of loss of vertebral body height is seen. M oderate disc height loss throughout the lumbar spine. Facet joint sclerosis and hypertrophic changes most notable at L4-L5 and L5-S1. Minimal anterolisthesis of L4 on L5. There is normal alignment of t he lumbar vertebral bodies otherwise. No significant degeneration changes throughout the spine. IMPRESSION: 1. No acute fracture. 2. Multilevel degenerative disc disease and moderate facet joint degenerative change in the lower lum bar spine. 3. Mild, grade 1 anterolisthesis L4-5
--- NOTE | 2023-11-21 13:39 | XR ---
EXAMINATION TYPE: XR Hip Complete RT DATE OF EXAM: 11/21/2023 11:38 AM CLINICAL INDICATION:Female, 53 years old with history of TRIPPED ON A MAT. TWISTED FELL ON BOTTOM; PH H. Initial encounter. COMPARISON: Pelvis radiograph today. TECHNIQUE: XR Hip Complete RT; hip was examined in the frontal and lateral projections. FINDINGS: No evidence for acute process, joint dislocation or significant soft tissue swelling. IMPRESSION: No acute process.
== END | disposition home or self-care (01) ==
LOC: RADXRMAIN 11:02
PROVIDERS: ATTEND Emergency Medicine
DX: M47.816 Spondylosis without myelopathy or radiculopathy, lumbar region (principal); S30.0XXA Contusion of lower back and pelvis, initial encounter; M51.36 Other intervertebral disc degeneration, lumbar region; M43.16 Spondylolisthesis, lumbar region; W01.0XXA Fall on same level from slipping, tripping and stumbling without subsequent striking against object, initial encounter
CPT/HCPCS: 72100; 72170; 73502

== ENCOUNTER → 2024-04-14 | Outpatient (CLI) | payer OTHER ==
--- NOTE | 2024-04-14 14:08 | XR ---
EXAMINATION TYPE: XR ankle complete LT, XR foot complete LT DATE OF EXAM: 04/14/2024 COMPARISON: NONE HISTORY: Sprain TECHNIQUE: Frontal, lateral, and oblique views of the left ankle were submitted for evaluation. Front al, lateral, and oblique views of the left foot are submitted for evaluation. FINDINGS: There is no evidence for fracture or dislocation. Ankle mortise is intact. Joints are prese rved. No osseous erosion. Mild soft tissue swelling the ankle. Large plantar and posterior calcaneal enthesophytes. Dorsal midfoot spurring. Incidental note is made of symphalangism of the fifth distal interphalangeal joint. IMPRESSION: 1. No evidence for acute fracture or dislocation. 2. Mild soft tissue swelling of the ankle. 3. Large plantar and posterior calcaneal enthesophytes. [facility], , 04/14/2024 2:06 PM
== END | disposition home or self-care (01) ==
LOC: RADXRMAIN 13:41
PROVIDERS: ATTEND Emergency Medicine
DX: S93.402A Sprain of unspecified ligament of left ankle, initial encounter (principal); S93.602A Unspecified sprain of left foot, initial encounter; M77.32 Calcaneal spur, left foot